=== PATIENT | female | born 1975 | race Caucasian/White ===

== ENCOUNTER 2016-12-04 10:19 | Emergency (ER) | payer MEDICAID, OTHER ==
[~2016-12-04] VITALS: Wt 75.0 kg
[~2016-12-04 10:19] MED LIST: ACET325T33 PO; ACET500C5 PO; BENZ100C70 PO; CYCL-319 PO; METH500T PO; NORE1TAB12 PO; OSLT75C PO
[2016-12-04] MEDS ORDERED: DIPHENHYDRAMINE 50 MG INJ IV STA (11:38)
[2016-12-04] MEDS ORDERED: SOD CHLORIDE 0.9% 1,000 ML IV STA (11:38)
[2016-12-04] MEDS ORDERED: METOCLOPRAMIDE 10 MG INJ IV STA (11:38)
[2016-12-04] MEDS ORDERED: FIORICET PO (12:46)
--- NOTE | 2016-12-04 13:04 | ERD ---
ER Documentation Chief Complaint Date/Time DATE: 12/04/16 TIME: 12:57 Chief Complaint HEADACHE X 3 DAYS HPI 41-year-old female with 41-year-old female with a past medical history of being born with 1 kidney presents to the ED complaining of a headache that started 3 days ago. States that it is located in her temporal region and radiates to the posterior head. States that she is in a lot of stress at work and feels a pressure sensation in her head. States that she is tried taking Aleve along with Tylenol PM with no relief of her symptoms. States that bright lights and loud noises make it worse. Reports photophobia and phonophobia. Reports that she feels nauseous but denies any vomiting. Denies any chest pain, shortness of breath, abdominal pain, cough, rhinorrhea, fever, chills, neck pain, neck stiffness. Denies any head trauma. ROS All systems reviewed and are negative except as per history of present illness. Medications Home Meds Active Scripts Acetamin/Butalbital/Caffeine* (Fioricet*) [id number] Tab, 1 TAB PO Q6H Y for PAIN, #30 TAB Prov:DANIELITO TALBOT PA-C 12/04/16 Oseltamivir Phosphate* (Tamiflu*) 75 Mg Capsule, 75 MG PO BID for 5 Days, CAP Prov:NI ROWLEY PA-C 11/28/15 Acetaminophen* (Tylophen*) 500 Mg Capsule, 1 CAP PO Q6H Y for PAIN AND OR ELEVATED TEMP, #20 CAP Prov:NI ROLWEY PA-C 11/28/15 Benzonatate* (Tessalon Perle*) 100 Mg Capsule, 100 MG PO Q8H Y for COUGH, #20 CAP Prov:NI ROWLEY PA-C 11/28/15 Acetaminophen* (Tylenol*) 325 Mg Tablet, 2 TAB PO Q8 Y for PAIN AND OR ELEVATED TEMP, #20 TAB Prov:DEWAYNE HENDERSON DO 10/05/15 Cyclobenzaprine Hcl* (Cyclobenzaprine Hcl*) 10 Mg Tablet, 10 MG PO TID, #10 TAB Prov:DEWAYNE HENDERSON DO 10/05/15 Methocarbamol* (Robaxin*) 500 Mg Tab, 500 MG PO Q6, #12 TAB Prov:DEWAYNE HENDERSON DO 07/31/15 Reported Medications Noreth A-Et Estra/Fe Fumarate (LO LOESTRIN FE 1-10 TABLET) 1 Each Tablet, 1 EACH PO DAILY 06/29/14 Allergies Allergies: Coded Allergies: No Known Allergy (Unverified , 10/05/15) PMhx/Soc History of Surgery: Yes (R carpal tunnel; C-sections x 2) Anesthesia Reaction: No Hx Neurological Disorder: No Hx Respiratory Disorders: No Hx Cardiac Disorders: No Hx Psychiatric Problems: No Hx Miscellaneous Medical Probl: Yes (BORN WITH ONLY ONE KIDNEY) Hx Alcohol Use: No Hx Substance Use: No Hx Tobacco Use: No Physical Exam Vitals Vital Signs Date Time Temp Pulse Resp B/P Pulse Ox O2 Delivery O2 Flow Rate FiO2 12/04/16 10:21 98.0 87 18 128/70 99 Physical Exam Const: [id number], well-nourished. In no acute distress. Head: Atraumatic, normocephalic Eyes: Normal Conjunctiva without injection. No purulent discharge. PERRLA. EOMI ENT: Normal external ear. Ear canal without erythema. Tympanic membrane pearly mcadams without effusion or bulging. Nasal canal clear with normal turbinates. Moist oropharynx without tonsillar exudates. Non-erythematous pharynx. Uvula midline. No drooling. No trismus. Neck: No cervical midline tenderness. Full range of motion. No meningismus. No cervical lymphadenopathy. No JVD. Resp: Clear to auscultation bilaterally. No wheezing, rhonchi, rales, or crackles. No accessory muscle use. No retractions. Cardio: Regular rate and rhythm. No murmurs, rubs or gallops. Abd: Soft, non tender, non distended. Normal bowel sounds. No palpable masses. No rebound tenderness. No guarding. Negative McBurney's Point. Negative Darden's Sign. Skin: Normal skin turgor. No petechiae or rashes Back: No midline tenderness. No CVA tenderness. Ext: No cyanosis, or edema. Distal pulses intact bilaterally. Neur: Awake and alert. Normal gait. Normal coordination. Cranial Nerves II- VII intact. Normal finger to nose. Muscle strength 5/5. Sensation intact. Psych: Normal Mood and Affect Results 24 hrs Current Medications Medications (Trade) Dose Ordered Sig/Mary Kate Route PRN Reason Start Time Stop Time Status Last Admin Dose Admin Sodium Chloride (NS) 1,000 ml @ 1,000 mls/hr Q1H STAT IV 12/04/16 11:38 12/04/16 12:37 DC 12/04/16 12:08 Metoclopramide HCl (Reglan) 10 mg ONCE STAT IV 12/04/16 11:38 12/04/16 11:42 DC 12/04/16 12:08 Diphenhydramine HCl (Benadryl) 25 mg ONCE STAT IV 12/04/16 11:38 12/04/16 11:42 DC 12/04/16 12:08 Procedures/MDM This is a 41-year-old female with no significant past medical history presents the ED complaining of a headache that started 3 days ago. Patient is afebrile and nontoxic-appearing. Patient has normal vital signs. Patient was given 1 L of normal saline, 10 mg Reglan, 25 mg Benadryl with relief of her symptoms. Patient is neurologically intact. There is low suspicion for intracranial bleed , subarachnoid hemorrhage, epidural hematoma, subdural hematoma, seizures, TIA, stroke, meningitis, or other emergent conditions. Discharge medications: Fioricet Follow up with primary care physician in 1-2 days. Instructed patient to return to the ED sooner for any worsening symptoms. Patient's questions were answered. Patient understood and agreed with discharge plan. Patient discharged stable. Departure Diagnosis: Primary Impression: Headache Headache type: unspecified Headache chronicity pattern: unspecified pattern Intractability: not intractable Qualified Code: R51 - Nonintractable headache, unspecified chronicity pattern, unspecified headache type Condition: Stable Patient Instructions: Headache, Unspecified Referrals: [facility] YOU HAVE RECEIVED A MEDICAL SCREENING EXAM AND THE RESULTS INDICATE THAT YOU DO NOT HAVE A CONDITION THAT REQUIRES URGENT TREATMENT IN THE EMERGENCY DEPARTMENT. FURTHER EVALUATION AND TREATMENT OF YOUR CONDITION CAN WAIT UNTIL YOU ARE SEEN IN YOUR DOCTORS OFFICE WITHIN THE NEXT 1-2 DAYS. IT IS YOUR RESPONSIBILITY TO MAKE AN APPOINTMENT FOR FOLOW-UP CARE. IF YOU HAVE A PRIMARY DOCTOR --you should call your primary doctor and schedule an appointment IF YOU DO NOT HAVE A PRIMARY DOCTOR YOU CAN CALL OUR PHYSICIAN REFERRAL HOTLINE AT IF YOU CAN NOT AFFORD TO SEE A PHYSICIAN YOU CAN CHOSE FROM THE FOLLOWING [facility] [address] [facility] [address] [facility] [address] [facility] [address] [facility] [address] [facility]. [facility] [address] [facility]. [facility] YOU HAVE RECEIVED A MEDICAL SCREENING EXAM AND THE RESULTS INDICATE THAT YOU DO NOT HAVE A CONDITION THAT REQUIRES URGENT TREATMENT IN THE EMERGENCY DEPARTMENT. FURTHER EVALUATION AND TREATMENT OF YOUR CONDITION CAN WAIT UNTIL YOU ARE SEEN IN YOUR DOCTORS OFFICE WITHIN THE NEXT 1-2 DAYS. IT IS YOUR RESPONSIBILITY TO MAKE AN APPOINTMENT FOR FOLOW-UP CARE. IF YOU HAVE A PRIMARY DOCTOR --you should call your primary doctor and schedule and appointment IF YOU DO NOT HAVE A PRIMARY DOCTOR YOU CAN CALL OUR PHYSICIAN REFERRAL HOTLINE AT . IF YOU CAN NOT AFFORD TO SEE A PHYSICIAN YOU CAN CHOSE FROM THE FOLLOWING [facility] INSTITUTIONS: [facility] [address] [place] [address] [facility] [address] [place] [address] [facility] [address] [place] [address] [facility] URGENT CARE/SPECIALTIES Additional Instructions: FOLLOW UP WITH YOUR PRIMARY CARE PHYSICIAN TOMORROW.Return to this facility if you are not improving as expected. DANIELITO TALBOT PA-C Dec 04, 2016 13:04
[2016-12-04 13:15] VITALS: BP 126/77; PULSE 75; RESP 18; TEMP 98.1
== END 2016-12-04 13:15 | disposition home or self-care (01) ==
LOC: FTE 10:19
DX: R51 Headache (principal)
CPT/HCPCS: 96374; 96375; J1200; J2765; J7030; Z7502

== ENCOUNTER 2017-01-22 09:46 | Emergency (ER) | payer OTHER ==
[~2017-01-22] VITALS: Ht 157.5 cm; Wt 64.5 kg
[~2017-01-22 09:46] MED LIST changes: +FIORICET PO
[2017-01-22 10:05] VITALS: Ht 157.5 cm; Wt 64.5 kg
[2017-01-22] MEDS ORDERED: ONDANSETRON 4 MG INJ IV STA (11:19)
[2017-01-22] MEDS ORDERED: DICLOFENAC SODIUM 37.5 MG/ML VIAL IV STA (11:19)
[2017-01-22] MEDS ORDERED: SOD CHLORIDE 0.9% 1,000 ML IV ONE (11:19)
[2017-01-22 11:59] LABS: ADD SCAN DIFF NO
[2017-01-22 12:15] LABS: ALBUMIN 4.7 g/dl (3.3-4.9); ALBUMIN/GLOBULIN RATIO 1.27; BILIRUBIN,INDIRECT 0.1 mg/dl (0-1.1); BILIRUBIN,TOTAL 0.1 mg/dl (0.2-1.3); CALCIUM 9.7 mg/dl (8.4-10.2); CREATININE 0.83 mg/dl (0.44-1.00); POTASSIUM 4.1 mmol/L (3.5-5.1); TOTAL PROTEIN 8.4 g/dl (6.1-8.1)
[2017-01-22 12:26] LABS: BASOPHILS % 0.6 % (0.0-2.0); EOSINOPHILS # 0.1 10^3/ul (0.0-0.5); EOSINOPHILS % 1.6 % (0.0-7.0); HEMATOCRIT 43.9 % (37.0-47.0); LYMPHOCYTES # 1.7 10^3/ul (0.8-2.9); LYMPHOCYTES % 24.6 % (15.0-51.0); MEAN CORPUSCULAR HEMOGLOBIN 30.7 pg (29.0-33.0); MEAN CORPUSCULAR HGB CONC 34.2 g/dl (32.0-37.0); MEAN PLATELET VOLUME 10.5 fl (7.4-10.4); MONOCYTE # 0.4 10^3/ul (0.3-0.9); MONOCYTES % 5.1 % (0.0-11.0); NEUTROPHIL # 4.8 10^3/ul (1.6-7.5); NEUTROPHILS % 67.8 % (39.0-77.0); PLATELET COUNT 238 10^3/UL (140-415); RED BLOOD COUNT 4.88 10^6/ul (4.20-5.40); RED CELL DISTRIBUTION WIDTH 11.9 % (11.5-14.5); WHITE BLOOD COUNT 7.1 10^3/ul (4.8-10.8)
[2017-01-22 12:30] LABS: ADD UMIC NO; URINE BILIRUBIN (Dip) NEGATIVE (NEGATIVE); URINE BLOOD (Dip) NEGATIVE (NEGATIVE); URINE COLOR LT. YELLOW (YELLOW); URINE GLUCOSE (Dip) NEGATIVE (NEGATIVE); URINE KETONES (Dip) NEGATIVE (NEGATIVE); URINE LEUKOCYTE ESTERASE (Dip) NEGATIVE (NEGATIVE); URINE NITRITE (Dip) NEGATIVE (NEGATIVE); URINE TOTAL PROTEIN (Dip) NEGATIVE (NEGATIVE); URINE UROBILINOGEN (Dip) 0.2 E.U./dL (0.1-1.0)
--- NOTE | 2017-01-22 12:57 | RADRPT ---
PROCEDURE: CT Abdomen and pelvis without contrast. CLINICAL INDICATION: Right lower quadrant abdominal pain TECHNIQUE: CT scan of the abdomen and pelvis with contrast was performed on a multidetector high-r esolution CT scan. . Coronal and sagittal reformatted images were obtained from the axial source i mages. Standard CT scan of the abdomen pelvis without contrast protocols were performed. The total exam CTDI equals 9.43 mGy and the total exam DLP equals 508.72 mGy-cm. One or more of the following dose reduction techniques were used: - Automated exposure control. - Adjustment of the mA and/or kV according to patient size. Use of iterative reconstruction technique. COMPARISON: None. 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 This is a normal variant. There is no e vidence of calcified renal calculi or hydronephrosis involving either renal moiety. No evidence of i ntra renal masses. The ureters are not optimally demonstrated but there are no calcified calculi in the distribution of the ureters. The urinary bladder is contracted but otherwise unremarkable. There is trace fluid in the cul-de-sac without other abdominal free fluid or localized fluid collect ions to suggest abscess. No intra-abdominal free air. The uterus is anteverted but otherwise unrem arkable. There are no adnexal masses demonstrated. The appendix is unremarkable. The stomach, small bowel and large bowel are unremarkable. Liver normal in size. The posterior lateral mid right lobe of the liver is a 0.7 cm low density les ion too small to characterize but likely a cyst. Without a history of malignancy follow-up is not s uggested. No other hepatic lesions. The spleen pancreas and adrenal glands are normal size configur ation without focal lesions. The gallbladder is unremarkable and there is no evidence of biliary du ctal dilation. The aorta is unremarkable. No evidence of abdominal or pelvic lymphadenopathy. The lung bases are unremarkable. There is minimal degenerative changes lower thoracic and lumbar spine. There are no acute osseous findings are osteoblastic/osteolytic lesions. IMPRESSION: 1. Right-sided crossed fused renal ectopia, a normal variant. No evidence of calcified urinary rickey culi hydronephrosis or renal masses. 2. Unremarkable appendix. No evidence of gastrointestinal disease. 3. Trace free fluid in the cul-de-sac but no intra-abdominal abscess, free air or lymphadenopathy. 4. 0.7 cm low density right lobe liver lesion too small to characterize likely a cyst. Follow-up i s not suggested without a history of malignancy. RPTAT:AAJJ Physician Teddy Date Time Electronically viewed and signed by Alyx Benavidez Physician on 01/22/2017 12:56 /
[2017-01-22] MEDS ORDERED: TRAM50TA2 PO (13:16)
--- NOTE | 2017-01-22 13:19 | ERD ---
ER Documentation Chief Complaint Date/Time DATE: 01/22/17 TIME: 13:17 Chief Complaint RIGHT FLANK PAIN ONLY HAVE RIGHT KIDNEY, HX: KIDNEY STONES HPI This 41-year-old female complains of a 2 day history of pain in her right flank. History of only having one kidney. She has a history of kidney stones. She denies any dysuria or hematuria. She denies any lower abdominal pain or left-sided abdominal pain. She denies any vomiting chest pain or shortness of breath. ROS All systems reviewed and are negative except as per history of present illness. Medications Home Meds Active Scripts Tramadol HCl (Tramadol HCl) 50 Mg Tablet, 50 MG PO Q4 Y for PAIN, #15 TAB Prov:DARYL HAMMER MD 01/22/17 Acetamin/Butalbital/Caffeine* (Fioricet*) [id number] Tab, 1 TAB PO Q6H Y for PAIN, #30 TAB Prov:DANIELITO TALBOT PA-C 12/04/16 Oseltamivir Phosphate* (Tamiflu*) 75 Mg Capsule, 75 MG PO BID for 5 Days, CAP Prov:NI ROWLEY PA-C 11/28/15 Acetaminophen* (Tylophen*) 500 Mg Capsule, 1 CAP PO Q6H Y for PAIN AND OR ELEVATED TEMP, #20 CAP Prov:NI ROWLEY PA-C 11/28/15 Benzonatate* (Tessalon Perle*) 100 Mg Capsule, 100 MG PO Q8H Y for COUGH, #20 CAP Prov:NI ROWLEY PA-C 11/28/15 Acetaminophen* (Tylenol*) 325 Mg Tablet, 2 TAB PO Q8 Y for PAIN AND OR ELEVATED TEMP, #20 TAB Prov:DEWAYNE HENDERSON DO 10/05/15 Cyclobenzaprine Hcl* (Cyclobenzaprine Hcl*) 10 Mg Tablet, 10 MG PO TID, #10 TAB Prov:DEWAYNE HENDERSON DO 10/05/15 Methocarbamol* (Robaxin*) 500 Mg Tab, 500 MG PO Q6, #12 TAB Prov:DEWAYNE HENDERSON DO 07/31/15 Reported Medications Noreth A-Et Estra/Fe Fumarate (LO LOESTRIN FE 1-10 TABLET) 1 Each Tablet, 1 EACH PO DAILY 06/29/14 Allergies Allergies: Coded Allergies: No Known Allergy (Unverified , 10/05/15) PMhx/Soc Medical and Surgical Hx: pt denies Medical Hx, pt denies Surgical Hx History of Surgery: Yes (R carpal tunnel; C-sections x 2) Anesthesia Reaction: No Hx Neurological Disorder: No Hx Respiratory Disorders: No Hx Cardiac Disorders: No Hx Psychiatric Problems: No 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 Neck: Full range of motion..~ No meningismus. Resp: Clear to auscultation bilaterally Cardio: Regular rate and rhythm, no murmurs Abd: Soft, non tender, non distended. Normal bowel sounds Skin: No petechiae or rashes Back: No midline . minimal tenderness in the right flank and right mid abdomen. No tenderness at McBurney's point no Darden sign. Ext: No cyanosis, or edema Neur: Awake and alert Psych: Normal Mood and Affect Result Diagram: 01/22/17 1130 01/22/17 1130 Results 24 hrs Laboratory Tests Test 01/22/17 11:30 01/22/17 11:50 White Blood Count 7.110^3/ul Red Blood Count 4.8810^6/ul Hemoglobin 15.0g/dl Hematocrit 43.9% Mean Corpuscular Volume 90.0fl Mean Corpuscular Hemoglobin 30.7pg Mean Corpuscular Hemoglobin Concent 34.2g/dl Red Cell Distribution Width 11.9% Platelet Count 83893^3/UL Mean Platelet Volume 10.5fl Neutrophils % 67.8% Lymphocytes % 24.6% Monocytes % 5.1% Eosinophils % 1.6% Basophils % 0.6% Nucleated Red Blood Cells % 0.0/100WBC Neutrophils # 4.810^3/ul Lymphocytes # 1.710^3/ul Monocytes # 0.410^3/ul Eosinophils # 0.110^3/ul Basophils # 0.010^3/ul Nucleated Red Blood Cells # 0.010^3/ul Sodium Level 138mmol/L Potassium Level 4.1mmol/L Chloride Level 105mmol/L Carbon Dioxide Level 25mmol/L Anion Gap 12 Blood Urea Nitrogen 12mg/dl Creatinine 0.83mg/dl Glucose Level 101mg/dl Calcium Level 9.7mg/dl Total Bilirubin 0.1mg/dl Direct Bilirubin 0.00mg/dl Indirect Bilirubin 0.1mg/dl Aspartate Amino Transf (AST/SGOT) 25IU/L Alanine Aminotransferase (ALT/SGPT) 22IU/L Alkaline Phosphatase 72IU/L Total Protein 8.4g/dl Albumin 4.7g/dl Globulin 3.70g/dl Albumin/Globulin Ratio 1.27 Lipase 600U/L Urine Color LT. YELLOW Urine Clarity CLEAR Urine pH 5.5 Urine Specific [place] <=1.005 Urine Ketones NEGATIVE Urine Nitrite NEGATIVE Urine Bilirubin NEGATIVE Urine Urobilinogen 0.2 E.U./dL Urine Leukocyte Esterase NEGATIVE Urine Hemoglobin NEGATIVE Urine Glucose NEGATIVE% Urine Total Protein NEGATIVE Current Medications Medications (Trade) Dose Ordered Sig/Mary Kate Route PRN Reason Start Time Stop Time Status Last Admin Dose Admin Ondansetron HCl (Zofran Inj) 4 mg ONCE STAT IV 01/22/17 11:19 01/22/17 11:21 DC 01/22/17 12:18 Diclofenac Sodium 37.5 mg 37.5 mg ONCE STAT IV 01/22/17 11:19 01/22/17 11:21 DC 01/22/17 12:18 Sodium Chloride (NS) 1,000 ml @ 0 mls/hr Q0M ONCE IV 01/22/17 11:19 01/22/17 11:21 DC 01/22/17 12:18 Procedures/MDM Urine is negative for leukocytes, nitrites, blood, glucose. CBC and CMP normal except for an elevated lipase of 600. In the uncertain cause of pain a CT abdomen pelvis without contrast was performed which shows congenital abnormal right kidney without additional noted acute findings. Patient was given dYLOJECT IV. Patient has right flank pain of uncertain etiology without evidence of UTI, renal stones, hepatobiliary disease, appendicitis, signs of obstruction or acute abdomen. She has a mild elevation of her lipase which may be a factor but is not in a classic location pancreatitis. She will treated with tramadol, bland diet and further observation at home. Patient return for fevers, blood, vomiting, migration of pain in the next day or with primary care doctor this week. Departure Diagnosis: Primary Impression: Flank pain Condition: Stable Patient Instructions: Flank Pain, Uncertain Cause, Pancreatitis Additional Instructions: No abnormalities seen on CT scan. There is some slight inflammation or elevation of pancreas enzymes noted but this is not in the area of pain. Recommend bland diet, return for fevers, vomiting, new worsening symptoms otherwise clear fluids and follow-up with primary care doctor this week. DARYL HAMMER MD Jan 22, 2017 13:19
[2017-01-22 13:35] VITALS: BP 117/72; PULSE 72; RESP 16; TEMP 98.8
== END 2017-01-22 13:36 | disposition home or self-care (01) ==
LOC: FTE 09:46
DX: R10.9 Unspecified abdominal pain (principal)
CPT/HCPCS: 74176; 80053; 81003; 83690; 85025; J2405; J7030; Z7610; 36415; 96374; 96375

== ENCOUNTER 2018-01-18 15:42 | Emergency (ER) | END 2018-01-18 18:07 | disposition home or self-care (01) ==

== ENCOUNTER 2018-02-20 06:34 | Day surgery (SDC) | END 2018-02-20 17:43 | disposition home or self-care (01) ==

== ENCOUNTER 2018-04-01 20:12 | Emergency (ER) | END 2018-04-01 23:40 | disposition home or self-care (01) ==

== ENCOUNTER 2018-09-10 05:28 | Emergency (ER) | END 2018-09-10 10:08 | disposition home or self-care (01) ==